=== PATIENT | female | born 1930 | race Caucasian/White ===

== ENCOUNTER 2017-04-25 10:10 | Emergency (ER) | payer MEDICARE, MEDICAID ==
[2017-04-25 10:17] VITALS: BP 162/52; PULSE 57; RESP 18; TEMP 97.7; O2SAT 97
--- NOTE | 2017-04-25 11:05 | RAD ---
PROCEDURE: Right tibia/ fibula dated 04/25/2027 HISTORY: Distal right leg pain COMPARISON: Correlation made with concurrent radiographs of the right knee TECHNIQUE: Frontal and lateral views obtained. FINDINGS: BONES: Current study reveals no evidence of displaced fracture nor dislocation. The osseous structures intact. No cortical destructive changes. Mild mid pretibial soft swelling. Note made of posterior calcaneal enthesophyte. If symptoms persist or occult fracture suspected clinically consider repeat radiographs 5-10 days as most fractures become radiographically evident this timeframe. JOINT SPACES: Significant tricompartmental degenerative osteoarthritis right knee. OTHER FINDINGS: Mild vascular calcifications IMPRESSION: No evidence acute displaced fracture nor destructive. Questionable mild mid pretibial soft tissue swelling DJD right knee. If symptoms persist or occult fracture suspected clinically consider repeat radiographs 5-10 days as most fractures become radiographically evident this timeframe.
--- NOTE | 2017-04-25 11:05 | C.PDOC ---
History Of Present Illness 87 yr old female with PMHx of arthritis presents to the ER with complaints of right knee pain. Patient states 4 days ago she was going down steps when she twisted her right knee. Patient currently c/o right sena pain, states she has been taking Tylenol with minimal relief. Patient denies direct trauma to the knee or leg, foot pain, sensory changes, rash, fever. Time Seen by Provider: 04/25/17 10:20 Chief Complaint (Nursing): Lower Extremity Problem/Injury History Per: Patient History/Exam Limitations: no limitations Onset/Duration Of Symptoms: Days Current Symptoms Are (Timing): Still Present Severity: Mild Past Medical History Reviewed: Historical Data, Nursing Documentation, Vital Signs Vital Signs: Last Vital Signs Temp 97.7 F 04/25/17 10:14 Pulse 57 L 04/25/17 10:14 Resp 18 04/25/17 10:14 BP 162/52 H 04/25/17 10:14 Pulse Ox 97 04/25/17 12:44 - Medical History PMH: Arthritis, Gastritis, HTN, Hypercholesterolemia Surgical History: Cholecystectomy (15 years ago as per patient) Family History: States: No Known Family Hx - Social History Hx Alcohol Use: No Hx Substance Use: No - Immunization History Hx Tetanus Toxoid Vaccination: No Hx Influenza Vaccination: Yes Hx Pneumococcal Vaccination: No Review Of Systems Except As Marked, All Systems Reviewed And Found Negative. Constitutional: Negative for: Fever, Chills Cardiovascular: Negative for: Chest Pain Respiratory: Negative for: Shortness of Breath Musculoskeletal: Positive for: Other ((+) Right knee/sena pain). 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 No erythema. No warmth. ) Extremity: Bilateral: Normal Color And Temperature, Normal ROM Pulses: Left Dorsalis Pedis: Normal, Right Dorsalis Pedis: Normal Neurological/Psych: Oriented x3, Normal Motor, Normal Sensation Gait: Steady ED Course And Treatment O2 Sat by Pulse Oximetry: 97 (RA ) Pulse Ox Interpretation: Normal - Other Rad X-Ray - Right Tibia/Fibula X-Ray: Viewed By Me, Read By Radiologist Interpretation: PROCEDURE: Right tibia/ fibula dated 04/25/2027. HISTORY: Distal right leg pain. COMPARISON: Correlation made with concurrent radiographs of the right knee. TECHNIQUE: Frontal and lateral views obtained. FINDINGS: BONES: Current study reveals no evidence of displaced fracture nor dislocation. The osseous structures intact. No cortical destructive changes. Mild mid pretibial soft swelling. Note made of posterior calcaneal enthesophyte. If symptoms persist or occult fracture suspected clinically consider repeat radiographs 5-10 days as most fractures become radiographically evident this timeframe. JOINT SPACES: Significant tricompartmental degenerative osteoarthritis right knee. OTHER FINDINGS: Mild vascular calcifications. IMPRESSION: No evidence acute displaced fracture nor destructive. Questionable mild mid pretibial soft tissue swelling. DJD right knee. If symptoms persist or occult fracture suspected clinically consider repeat radiographs 5-10 days as most fractures become radiographically evident this timeframe. X-Ray - Right Knee X-Ray: Viewed By Me, Read By Radiologist Interpretation: PROCEDURE: Right Knee Radiographs. HISTORY: RIGHT KNEE PAIN, R/O FX. COMPARISON: None. FINDINGS: BONES: No definitive radiographic evidence of displaced fracture nor dislocation so far as can seen. Note that evaluation fracture somewhat limited due to significant degenerative osteoarthritis. JOINTS: There appears to be a intra articular calcifications suggesting chondrocalcinosis; rule out CPPD. Tricompartmental degenerative osteoarthritis. JOINT EFFUSION: Moderate-sized suprapatellar joint effusion which appears to contain calcifications as well. . Questionable remodeling of the anterior cortex distal right femur subjacent to the joint effusion. OTHER FINDINGS: Popliteal calcifications also present suggesting calcification within a popliteal cyst. IMPRESSION: No definitive evidence of acute displaced fracture nor dislocation tricompartmental DJD with suspected chondrocalcinosis; rule out CPPD. Small to medium-sized suprapatellar joint effusion with what could represent subjacent remodeling of the anterior distal cortex of right femur. Progress Note: PLAN: Patient given PO tylenol. Xrays of right knee and right tib/fib ordered and reviewed. Tariq wrap applied to knee by geotechnical department manager. Xrays (-) for acute fx/dislocation. Patient given Rx for pain medication, and was instructed to follow up with orthopedics within 1 week. She understands she should return to ED if symptoms worsen. Reevaluation Time: 11:45 Reassessment Condition: Improved Disposition Counseled Patient/Family Regarding: Diagnosis, Need For Followup, Rx Given - Disposition Referrals: Yuridia Ordonez MD [Staff Provider] - Radha Bernard MD [Medical Doctor] - Disposition: HOME/ ROUTINE Disposition Time: 11:45 Condition: STABLE Additional Instructions: SEGUIMIENTO CON ORTOPEDIA DENTRO DE 1 SEMANA USE LOS MEDICAMENTOS QUE JAY NECESARIOS PARA EL DOLOR ELEVAR LA PIERNA TANTO POSIBLE DEVUELVA A LA MERCEDES DE EMERGENCIA SI LOS SNTOMAS EMPEORARAN Prescriptions: Naproxen [Naprosyn Tab] 375 mg PO BID PRN #20 tab PRN Reason: pain Instructions: Knee Sprain (ED) Forms: [employer] (Palauan) Print Language: BULGARIAN - POA Present On Arrival: None - Clinical Impression Clinical Impression: Right knee sprain - Scribe Statement The provider has reviewed the documentation as recorded by the Scribe Zandra Ojeda Provider Attestation: All medical record entries made by the Scribe were at my direction and personally dictated by me. I have reviewed the chart and agree that the record accurately reflects my personal performance of the history, physical exam, medical decision making, and the department course for this patient. I have also personally directed, reviewed, and agree with the discharge instructions and disposition.
--- NOTE | 2017-04-25 11:41 | RAD ---
PROCEDURE: Right Knee Radiographs. HISTORY: RIGHT KNEE PAIN, R/O FX COMPARISON: None. FINDINGS: BONES: No definitive radiographic evidence of displaced fracture nor dislocation so far as can seen. Note that evaluation fracture somewhat limited due to significant degenerative osteoarthritis JOINTS: There appears to be a intra articular calcifications suggesting chondrocalcinosis; rule out CPPD. Tricompartmental degenerative osteoarthritis. JOINT EFFUSION: Moderate-sized suprapatellar joint effusion which appears to contain calcifications as well. . Questionable remodeling of the anterior cortex distal right femur subjacent to the joint effusion. OTHER FINDINGS: Popliteal calcifications also present suggesting calcification within a popliteal cyst. IMPRESSION: No definitive evidence of acute displaced fracture nor dislocation tricompartmental DJD with suspected chondrocalcinosis; rule out CPPD. Small to medium-sized suprapatellar joint effusion with what could represent subjacent remodeling of the anterior distal cortex of right femur.
== END 2017-04-25 12:03 | disposition home or self-care (01) ==
LOC: C.ER 10:10
DX: S83.91XA Sprain of unspecified site of right knee, initial encounter (principal); X50.9XXA Other and unspecified overexertion or strenuous movements or postures, initial encounter

== ENCOUNTER 2018-02-25 00:59 | Emergency (ER) | payer MEDICARE, MEDICAID ==
[2018-02-25 01:23] VITALS: RESP 20
[2018-02-25 02:54] LABS: BASO % 0.6 % (0.0-2.0); EOS % 0.4 % (0.0-4.0); HEMOGLOBIN 11.5 g/dL (11.0-16.0); LYMPH # 1.1 K/uL (1.0-4.3); MEAN CELL VOLUME 87.8 fL (81.0-99.0); MEAN CORPUSCULAR HEMOGLOBIN 30.2 pg (27.0-31.0); MEAN CORPUSCULAR HGB CONC 34.4 g/dL (33.0-37.0); MEAN PLATELET VOLUME 7.1 fL (7.2-11.7); MONO # 0.5 K/uL (0.0-0.8); MONO % 7.7 % (0.0-10.0); NEUT # 5.4 K/uL (1.8-7.0); NEUT % 75.3 % (50.0-75.0); RBC 3.8 Mil/uL (3.80-5.20); RED CELL DISTRIBUTION WIDTH 14.4 % (11.5-14.5); WHITE BLOOD COUNT 7.1 K/uL (4.8-10.8)
[2018-02-25 03:00] LABS: PROTHROMBIN TIME 10.8 SECONDS (9.7-12.2)
[2018-02-25 03:05] LABS: ALB/GLOB RATIO 1.3 (1.0-2.1); ALBUMIN 4.4 g/dL (3.5-5.0); ALT/SGPT 22 U/L (9-52); AST/SGOT 34 U/L (14-36); BLOOD UREA NITROGEN 19 mg/dL (7-17); CALCIUM 9.8 mg/dl (8.6-10.4); GFR AFRICAN-AMERICAN > 60; GFR NON-AFRICAN AMERICAN 59
--- NOTE | 2018-02-25 04:03 | C.PDOC ---
History Of Present Illness Patient is an 88 y/o female, with a Hx of HTN, HLD, gastritis, cardiac stent, cholecystectomy and hysterectomy, who presents to the ED with daughter and granddaughter with a complaint of a left nare nose bleed since 9pm. Patient reports bleeding has been intermittent but persistent since onset. Patient admits to taking Valenta. Denies any lightheadedness, allergies. Time Seen by Provider: 02/25/18 01:39 Chief Complaint (Nursing): ENT Problem History Per: Patient Onset/Duration Of Symptoms: Hrs (9 pm) Current Symptoms Are (Timing): Still Present Symptoms Have Been: Episodic Anticoagulant/Antiplatlet Use?: Yes (valenta) Past Medical History Reviewed: Historical Data, Nursing Documentation, Vital Signs Vital Signs: Last Vital Signs Temp 97.8 F 02/25/18 01:15 Pulse 85 02/25/18 01:15 Resp 20 02/25/18 01:15 BP 171/84 H 02/25/18 02:31 Pulse Ox 96 02/25/18 04:34 - Medical History PMH: Arthritis, Gastritis, HTN, Hypercholesterolemia Denies: Chronic Kidney Disease Surgical History: Cholecystectomy (15 years ago as per patient) Other Surgeries: hysterectomy Family History: States: No Known Family Hx - Social History Hx Tobacco Use: No Hx Alcohol Use: No Hx Substance Use: No - Immunization History Hx Tetanus Toxoid Vaccination: No Hx Influenza Vaccination: Yes Hx Pneumococcal Vaccination: No Review Of Systems Constitutional: Negative for: Fever, Chills ENT: Positive for: Nose Discharge (left nare epistaxis) Neurological: Negative for: Weakness, Numbness, Dizziness Physical Exam - Physical Exam Appears: Well, Non-toxic, No Acute Distress Skin: Normal Color, Warm, Dry Head: Atraumatic, Normacephalic Eye(s): bilateral: PERRL, EOMI Nose: Epistaxis (left nare bleeding slowed down significantly) Oral Mucosa: Moist Chest: Symmetrical Cardiovascular: Rhythm Regular, No Murmur Respiratory: Normal Breath Sounds, No Rales, No Rhonchi, No Wheezing Gastrointestinal/Abdominal: Soft, No Tenderness Neurological/Psych: Oriented x3, Normal Speech, Normal Cognition ED Course And Treatment - Laboratory Results Result Diagrams: 02/25/18 02:50 02/25/18 02:50 O2 Sat by Pulse Oximetry: 96 Progress Note: Patient holding pressure to nose. Bleeding slowed significantly. Hemoglobin 11. Platelet 309. INR 1. On re-eval, bleeding has stopped and patient is resting comfortably and is stable for discharge. Disposition Doctor Will See Patient In The: Office Counseled Patient/Family Regarding: Diagnosis - Disposition Referrals: [facility] [place]] [facility] at [facility] [Outside] [facility] [Outside] Disposition: HOME/ ROUTINE Disposition Time: 04:33 Condition: GOOD Additional Instructions: return if nose bleed cannot be controlled by applying direct pressure at home Forms: [employer] (Montenegrin) - Clinical Impression Clinical Impression: Epistaxis not due to trauma - Scribe Statement The provider has reviewed the documentation as recorded by the Scribe Jade Hankins All medical record entries made by the Scribe were at my direction and personally dictated by me. I have reviewed the chart and agree that the record accurately reflects my personal performance of the history, physical exam, medical decision making, and the department course for this patient. I have also personally directed, reviewed, and agree with the discharge instructions and disposition.
[2018-02-25 05:29] VITALS: BP 162/84; PULSE 88; TEMP 98; O2SAT 98
== END 2018-02-25 05:26 | disposition home or self-care (01) ==
LOC: C.ER 00:59
DX: R04.0 Epistaxis (principal)

== ENCOUNTER 2018-06-11 13:10 | Emergency (ER) | payer MEDICARE, MEDICAID ==
[2018-06-11 13:23] VITALS: TEMP 97.8
--- NOTE | 2018-06-11 14:41 | C.PDOC ---
Time Seen by Provider: 06/11/18 13:31 Chief Complaint (Nursing): Headache Past Medical History Vital Signs: Last Vital Signs Temp 97.8 F 06/11/18 13:17 Pulse 61 06/11/18 13:17 Resp 16 06/11/18 13:17 BP 194/64 H 06/11/18 13:17 Pulse Ox 99 06/11/18 13:17 - Medical History PMH: Arthritis, Gastritis, HTN, Hypercholesterolemia Denies: Chronic Kidney Disease Surgical History: Cholecystectomy (15 years ago as per patient) Family History: States: Unknown Family Hx - Social History Hx Tobacco Use: No Hx Alcohol Use: No Hx Substance Use: No - Immunization History Hx Tetanus Toxoid Vaccination: No Hx Influenza Vaccination: Yes Hx Pneumococcal Vaccination: No ED Course And Treatment O2 Sat by Pulse Oximetry: 99 Disposition - Disposition
--- NOTE | 2018-06-11 14:44 | C.PDOC ---
History Of Present Illness 88yo female, brought to ER by family for evaluation after she fell backwards yesterday while using her walker. Per family, patient was rolling the walker backward and hit a crack on the ground and tumbled backwards. Patient hit the b ack of her head, left elbow and buttock; patient's family has been giving her Tylenol 500mg per 6 hours and deny giving any ice therapy. No loss of consciousness, change in mental status, vomiting and offers no additional medical complaints. Time Seen by Provider: 06/11/18 13:31 Chief Complaint (Nursing): Headache History Per: Patient, Family History/Exam Limitations: no limitations Onset/Duration Of Symptoms: Days (1) Current Symptoms Are (Timing): Still Present Additional History Per: Patient Past Medical History Reviewed: Historical Data, Nursing Documentation, Vital Signs Vital Signs: Last Vital Signs Temp 97.8 F 06/11/18 13:17 Pulse 61 06/11/18 13:17 Resp 16 06/11/18 13:17 BP 194/64 H 06/11/18 13:17 Pulse Ox 99 06/11/18 13:17 - Medical History PMH: Arthritis, Gastritis, HTN, Hypercholesterolemia Denies: Chronic Kidney Disease Surgical History: Cholecystectomy (15 years ago as per patient) Family History: States: No Known Family Hx - Social History Hx Tobacco Use: No Hx Alcohol Use: No Hx Substance Use: No - Immunization History Hx Tetanus Toxoid Vaccination: No Hx Influenza Vaccination: Yes Hx Pneumococcal Vaccination: No Review Of Systems Except As Marked, All Systems Reviewed And Found Negative. Eyes: Negative for: Vision Change Cardiovascular: Negative for: Chest Pain Respiratory: Negative for: Shortness of Breath Gastrointestinal: Negative for: Vomiting Musculoskeletal: Positive for: Arm Pain (left elbow injury), Other (left buttock injury) Neurological: Positive for: Other (head injury). Negative for: Weakness, Numbness, Altered Mental Status Physical Exam - Physical Exam Appears: Non-toxic, No Acute Distress Skin: Normal Color, Warm, Dry Head: Atraumatic, Normacephalic, No Tenderness, No Swelling, No Abrasion, No Laceration Eye(s): bilateral: Normal Inspection, PERRL, EOMI Oral Mucosa: Moist Neck: Normal ROM, No Midline Cervical Tenderness, No Paracervical Tenderness, No Step Off Deformity, Supple Chest: Symmetrical, No Tenderness, No Ecchymosis Cardiovascular: Rhythm Regular Respiratory: Normal Breath Sounds Gastrointestinal/Abdominal: Normal Exam, Soft, No Tenderness Back: No CVA Tenderness, No Vertebral Tenderness, Other (minimal tenderness to left sacral-iliac region) Extremity: Normal ROM (x 4), No Tenderness, Capillary Refill (< 2 seconds), No Deformity, Swelling (ecchymosis and swelling to extensor surface of left elbow) Neurological/Psych: Oriented x3, Normal Speech, Normal Cognition, Normal Motor, Normal Sensation ED Course And Treatment - Laboratory Results Result Diagrams: 06/11/18 15:05 06/11/18 15:05 Lab Interpretation: Normal ECG: Interpreted By Me ECG Rhythm: Sinus Rhythm ECG Interpretation: Normal Rate From EC O2 Sat by Pulse Oximetry: 99 (RA) Pulse Ox Interpretation: Normal - Radiology CXR: Interpreted by Me CXR Interpretation: Yes: No Acute Disease - Other Rad L elbow X-Ray: Interpreted by Me (neg) b/l hips/pelvis X-Ray: Interpreted by Me (neg) - CT Scan/US head CT Other Rad Studies (CT/US): Interpreted By Me, Radiology Report Reviewed (no acute findings) Reevaluation Time: 16:01 Reassessment Condition: Improved Medical Decision Making Medical Decision Making: Plan: * Labs * UA * CXR * CT Head w/o contrast * XR Left Elbow * XR bilateral hips * Motrin 600mg PO * Amlodopine 10mg PO occipital and L elbow and L>R buttock contusions, no acute fx's, nor brain injuries ice/nsaids discussed. Disposition Doctor Will See Patient In The: Office Counseled Patient/Family Regarding: Studies Performed, Diagnosis - Disposition Disposition: HOME/ ROUTINE Disposition Time: 16:02 Condition: GOOD Forms: [employer] (Argentine) - Clinical Impression Clinical Impression: Multiple contusions - Scribe Statement The provider has reviewed the documentation as recorded by the Jahaira Rodas Provider Attestation: All medical record entries made by the Jahaira were at my direction and personally dictated by me. I have reviewed the chart and agree that the record accurately reflects my personal performance of the history, physical exam, medical decision making, and the department course for this patient. I have also personally directed, reviewed, and agree with the discharge instructions and disposition.
[2018-06-11 15:09] LABS: BASO % 0.5 % (0.0-2.0); EOS # 0.1 K/uL (0.0-0.7); EOS % 0.9 % (0.0-4.0); HEMOGLOBIN 12.4 g/dL (11.0-16.0); LYMPH # 1.1 K/uL (1.0-4.3); LYMPH % 12.7 % (20.0-40.0); MEAN CELL VOLUME 86.7 fL (81.0-99.0); MEAN CORPUSCULAR HEMOGLOBIN 29.9 pg (27.0-31.0); MEAN CORPUSCULAR HGB CONC 34.5 g/dL (33.0-37.0); MEAN PLATELET VOLUME 7.2 fL (7.2-11.7); MONO # 0.6 K/uL (0.0-0.8); MONO % 6.8 % (0.0-10.0); NEUT # 6.6 K/uL (1.8-7.0); NEUT % 79.1 % (50.0-75.0); RBC 4.16 Mil/uL (3.80-5.20); RED CELL DISTRIBUTION WIDTH 14.8 % (11.5-14.5); WHITE BLOOD COUNT 8.3 K/uL (4.8-10.8)
--- NOTE | 2018-06-11 15:09 | CT ---
Date of service: 06/11/2018 PROCEDURE: CT HEAD WITHOUT CONTRAST. HISTORY: Status post fall with occipital contusion yesterday, neuro normal COMPARISON: None available. TECHNIQUE: Axial computed tomography images were obtained through the head/brain without intravenous contrast. Radiation dose: Total exam DLP = 949.75 mGy-cm. This CT exam was performed using one or more of the following dose reduction techniques: Automated exposure control, adjustment of the mA and/or kV according to patient size, and/or use of iterative reconstruction technique. FINDINGS: HEMORRHAGE: No intracranial hemorrhage. BRAIN: Moderate diffuse/confluent chronic white matter ischemic changes seen extending peripherally into the deep and subcortical white matter both cerebral hemispheres.. There is also some extension of these changes into the white matter tracts of both basal nuclei. Scattered more discrete chronic appearing deep and subcortical white matter as well as basal nuclei lacunar type infarcts also felt be present. There are several small calcifications seen both cerebral hemispheres: 2 in the left posterior frontal subarachnoid spaces and another in the left parasagittal anterior frontal subarachnoid space and 4th in the right superior aspect of the sylvian fissure. Findings are nonspecific though differential diagnosis would include neurocysticercosis or other post infectious/inflammatory etiology. Is there history of seizure disorder disorder in this patient?. No obvious parenchymal nor extra-axial mass or collection seen on this noncontrast study. Moderate to significant generalized volume loss VENTRICLES: No obstructive the hydrocephalus. CALVARIUM: Unremarkable. PARANASAL SINUSES: Unremarkable as visualized. No significant inflammatory changes. MASTOID AIR CELLS: Unremarkable as visualized. No inflammatory changes. OTHER FINDINGS: None. IMPRESSION: Moderate diffuse/confluent chronic white matter ischemic changes seen extending peripherally into the deep and subcortical white matter both cerebral hemispheres.. There is also some extension of these changes into the white matter tracts of both basal nuclei. Scattered more discrete chronic appearing deep and subcortical white There are several small calcifications seen both cerebral hemispheres: 2 in the left posterior frontal subarachnoid spaces and another in the left parasagittal anterior frontal subarachnoid space and 4th in the right superior aspect of the sylvian fissure. Findings are nonspecific though differential diagnosis would include neurocysticercosis or other post infectious/inflammatory etiology. Is there history of seizure disorder disorder in this patient?. Moderate to significant generalized volume loss
[2018-06-11 15:16] LABS: URINE BILIRUBIN NEGATIVE (NEGATIVE); URINE BLOOD 1+ (NEGATIVE); URINE CLARITY Clear (Clear); URINE COLOR Straw (YELLOW); URINE GLUCOSE (UA) NORMAL (Normal); URINE LEUKOCYTE ESTERASE NEG Leu/uL (Negative); URINE PROTEIN NEGATIVE (NEGATIVE); URINE UROBILINOGEN NORMAL mg/dL (0.2-1.0)
[2018-06-11 15:31] LABS: PROTHROMBIN TIME 11.3 SECONDS (9.7-12.2)
[2018-06-11 15:46] LABS: ALB/GLOB RATIO 1.3 (1.0-2.1); ALBUMIN 4.8 g/dL (3.5-5.0); CALCIUM 10.3 mg/dl (8.6-10.4)
[2018-06-11 15:47] VITALS: BP 163/74; PULSE 60; RESP 20
[2018-06-11 15:56] LABS: TROPONIN I 0.013 ng/mL (0.00-0.120)
[2018-06-11 16:03] VITALS: O2SAT 99
--- NOTE | 2018-06-11 17:28 | RAD ---
Date of service: 06/11/2018 PROCEDURE: CHEST RADIOGRAPH, 1 VIEW HISTORY: SOB COMPARISON: None comparison made with chest radiograph 05/05/2016. FINDINGS: LUNGS: Mild bibasilar atelectasis. PLEURA: No pneumothorax or pleural fluid seen. CARDIOVASCULAR: Heart remains enlarged. Right paratracheal density probably represents ectatic great vessels. OSSEOUS STRUCTURES: No significant abnormalities. VISUALIZED UPPER ABDOMEN: Normal. OTHER FINDINGS: None. IMPRESSION: Mild bibasilar atelectasis.. Right paratracheal density probably represents ectasias of the great vessels. Mild bibasilar atelectasis
--- NOTE | 2018-06-11 17:29 | RAD ---
Date of service: 06/11/2018 PROCEDURE: Radiographs of the left elbow. HISTORY: fall, L elbow contusion COMPARISON: No prior. FINDINGS: BONES: Normal. No fracture. JOINTS: Normal. No osteoarthritis. SOFT TISSUES: Normal. JOINT EFFUSION: None. OTHER FINDINGS: None IMPRESSION: Unremarkable radiographs of the left elbow.
--- NOTE | 2018-06-11 17:48 | RAD ---
PROCEDURE: Radiographs of the pelvis and bilateral hips HISTORY: fall to buttock yesterday COMPARISON: None. FINDINGS: BONES: Pelvis: Unremarkable. Right hip:Unremarkable. Left hip:Unremarkable. JOINTS: Right hip: Unremarkable. Left hip: Unremarkable. Sacroiliac Joints: Unremarkable. Pubic symphysis: Unremarkable. SOFT TISSUES: Normal. OTHER FINDINGS: None. IMPRESSION: No evidence of acute displaced fracture nor dislocation. The.
== END 2018-06-11 16:21 | disposition home or self-care (01) ==
LOC: C.ER 13:10
DX: S50.02XA Contusion of left elbow, initial encounter (principal); S30.0XXA Contusion of lower back and pelvis, initial encounter; W18.30XA Fall on same level, unspecified, initial encounter; E78.00 Pure hypercholesterolemia, unspecified; I10 Essential (primary) hypertension

== ENCOUNTER 2018-10-06 09:57 | Outpatient (CLI) | payer MEDICARE, MEDICAID | END 2018-10-06 09:58 | disposition home or self-care (01) | LOC: C.CTH 09:57 ==